=== PATIENT | female | born 1990 | race Caucasian/White ===

== ENCOUNTER 2024-07-23 04:49 | Emergency (ER) | payer OTHER ==
[2024-07-23 05:10] VITALS: BP 140/83; PULSE 94; RESP 18; TEMP 98.9; BMI 29.2
[2024-07-23] MEDS ORDERED: LIDOCAINE 2.5%/PRILOCAINE 2.5% (5 Gram/TUBE) TP ONE (05:21)
== END 2024-07-23 06:25 | disposition home or self-care (01) ==
LOC: JER 04:49
DX: L02.211 Cutaneous abscess of abdominal wall (principal)
CPT/HCPCS: 99283-25; 99284-25